=== PATIENT | female | born 1975 | race Caucasian/White ===

== ENCOUNTER 2017-01-02 01:32 | Emergency (ER) | payer OTHER ==
--- NOTE | 2017-01-02 01:46 | PDOC ---
History of Present Illness - General Chief Complaint: Pain, Acute Stated Complaint: FELL HITTING NECK ON FIRE PLACE Time Seen by Provider: 01/02/17 01:39 - History of Present Illness Initial Comments: This otherwise healthy 41-year-old woman presents with a history of trauma to the right side of her neck. Yesterday afternoon, as she was cleaning her house , the patient slipped and fell forward, striking the right anterior portion of her neck against the corner of the fireplace. She had no other impact and denies loss of consciousness. Since then, she has had pain and bruising in the area of impact. Also, she notes pain with swallowing on the side of the trauma but has not had any difficulty with breathing or sensation of foreign body in her throat. She denies lightheadedness/visual changes/extremity or facial weakness/difficulty with speaking. Past History - Past Medical History Allergies/Adverse Reactions: Allergies Allergy/AdvReac Type Severity Reaction Status Date / Time No Known Allergies Allergy Verified 01/02/17 01:40 Home Medications: Ambulatory Orders NK [No Known Home Medication] 01/02/17 Anemia: No Asthma: No Cancer: No Cardiac Disorders: No CVA: No COPD: No CHF: No Dementia: No Diabetes: No GI Disorders: Yes (gerd) Disorders: No HTN: No Hypercholesterolemia: No Liver Disease: No Seizures: No Thyroid Disease: No - Surgical History Abdominal Surgery: No Appendectomy: No Cardiac Surgery: No Cholecystectomy: No Lung Surgery: No Neurologic Surgery: No Orthopedic Surgery: No - Psycho/Social/Smoking Cessation Hx Anxiety: No Suicidal Ideation: No Smoking History: Never smoked Have you smoked in the past 12 months: No Hx Alcohol Use: No Drug/Substance Use Hx: No Substance Use Type: None Hx Substance Use Treatment: No Review of Systems - Review of Systems Able to Perform ROS?: Yes Comments:: 12 point review of systems is negative except for what is noted in the history of present illness *Physical Exam - Physical Exam Comments: GENERAL: Adult female, alert and oriented 3, in no acute distress HEAD: Normal with no signs of trauma. EYES: PERRLA, EOMI, sclera anicteric, conjunctiva clear. ENT: Ears normal, nares patent, oropharynx clear without exudates. Dry mucous membranes. NECK: 3 cm by 3 cm ecchymotic, mildly edematous, mildly tender area just proximal to the sternal insertion of the R sternocleidomastoid muscle No bruits; mass non-pulsatile Neck otherwise nontender and supple LUNGS: Breath sounds equal, clear to auscultation bilaterally. No wheezes, and no crackles. HEART:Regular rate and rhythm, normal S1 and S2 without murmur, rub or gallop. ABDOMEN:.normal bowel sounds No guarding,tenderness or rebound.No masses No distention. EXTREMITIES: Normal range of motion, no edema. No clubbing or cyanosis. No erythema, or tenderness. NEUROLOGICAL: Cranial nerves II through XII grossly intact. Normal speech. Motor 5/5 . No pronator drift . Normal gait MUSCULOSKELETAL: Back non-tender to palpation, no CVA tenderness SKIN: Warm, Dry, normal turgor, no rashes or lesions noted. Medical Decision Making - Medical Decision Making Soft tissue noncontrast CT of the soft tissue of the neck performed to evaluate for injury to carotid artery/jugular vein/thyroid gland/airway. No evidence of significant injury to the deep tissues of the neck. There is no cervical hematoma. Results discussed with the patient and her daughter. She will be discharged with instructions to keep her head elevated and to avoid strenuous upper body activity. The patient prefers not to use analgesics; she has been advised to use acetaminophen instead of nonsteroidal anti-inflammatories for the next few days. She should follow-up with her general medical doctor within the next 5 days. *DC/Admit/Observation/Transfer Diagnosis at time of Disposition: NECK CONTUSION Neck contusion Qualifiers: Encounter type: initial encounter Qualified Code(s): S10.93XA - Contusion of unspecified part of neck, initial encounter - Discharge Dispostion Disposition: HOME Condition at time of disposition: Stable - Patient Instructions Printed Discharge Instructions: DI for Contusion Additional Instructions: Keep head elevated on extra pillow at night Tylenol as needed for pain Return to ER if you have difficulty breathing or difficulty swallowing Follow-up with your general doctor within 5 days
[2017-01-02 01:49] VITALS: BP 129/93; PULSE 78; TEMP 97.8; BMI 31.1
== END 2017-01-02 03:18 | disposition home or self-care (01) ==
LOC: FER 01:32
DX: S10.93XA Contusion of unspecified part of neck, initial encounter (principal); W19.XXXA Unspecified fall, initial encounter; Y93.89 Activity, other specified; Y92.008 Other place in unspecified non-institutional (private) residence as the place of occurrence of the external cause; K21.9 Gastro-esophageal reflux disease without esophagitis
CPT/HCPCS: 70490-TC; 99281-25

== ENCOUNTER 2017-03-07 21:24 | Emergency (ER) | payer OTHER ==
[2017-03-07 21:32] VITALS: BP 115/74; PULSE 76; TEMP 98.1; BMI 31.1
[2017-03-07] MEDS ORDERED: KETOROLAC TROMETHAMINE 60 MG/2 ML VIAL ONE (21:53)
--- NOTE | 2017-03-07 21:55 | PDOC ---
History of Present Illness - History of Present Illness Initial Comments: 03/07/17 21:55 41 y/o F with no significant PMH presents to the ED with right ankle pain today. She slipped and rolled her ankle. She did not hear any cracks or pops. She is ambulating but with difficulty secondary to the pain. She denies numbness or tingling. Denies any other complaints. PAST MEDICAL HISTORY: no significant history PAST SURGICAL HISTORY: no significant history FAMILY HISTORY: no pertinent history SOCIAL HISTORY: Pt lives with family and is employed. MEDICATIONS: reviewed ALLERGIES: As per nursing notes Review of Systems: General: No fevers or chills, no weakness, no weight loss HEENT: No change in vision. No sore throat,. No ear pain CardioVascular: No chest pain or shortness of breath Respiratory: No cough, or wheezing. Gastrointestinal: no nausea, vomiting, diarrhea or constipation, No rectal bleeding Genitourinary: No dysuria, hematuria, or frequency Musculoskeletal: (+) right ankle pain. Neurologic: No headache, vertigo, dizziness or loss of consciousness Psychiatric: No depression Skin: No rashes or easy bruising Endocrine: No increased thirst or abnormal weight change Allergic: No skin or latex allergy All other systems reviewed and normal Physical Exam: GENERAL: The patient is awake, alert, and fully oriented, in no acute distress. HEAD: Normal with no signs of trauma. EYES: Pupils equal, round and reactive to light, extraocular movements intact, sclera anicteric, conjunctiva clear. EXTREMITIES: Tenderness and swelling over the right lateral malleolus. No tenderness at the base of the 5th metatarsal. Neurovascularly intact. NEUROLOGICAL: Normal speech, normal gait. PSYCH: Normal mood, normal affect. SKIN: Warm, Dry, normal turgor, no rashes or lesions noted. <Lovely Perez - Last Filed: 03/07/17 21:55> - General History Source: Patient Exam Limitations: No Limitations - History of Present Illness Initial Comments: 03/07/17 23:40 A portion of this note was documented by scribe services under my direction. I have reviewed the details of the note, within reason, and agree with the documentation. The case summary and management plan written by me. X-ray reviewed by me no acute fracture dislocation Assessment and plan: This is a 41-year-old female who twisted her right ankle. X-ray was negative for any acute pathology Patient was given a Claude wrap and crutches and she was unable to bear weight. Patient has a primary care doctor to follow-up with. <Himanshu Hernandez I - Last Filed: 03/07/17 23:41> - General Chief Complaint: Injury Stated Complaint: RT LEG PAIN Time Seen by Provider: 03/07/17 21:31 Past History <Lovely Perez - Last Filed: 03/07/17 21:55> - Past Medical History Anemia: No Asthma: No Cancer: No Cardiac Disorders: No CVA: No COPD: No CHF: No Dementia: No Diabetes: No GI Disorders: Yes (gerd) Disorders: No HTN: No Hypercholesterolemia: No Liver Disease: No Seizures: No Thyroid Disease: No - Surgical History Abdominal Surgery: No Appendectomy: No Cardiac Surgery: No Cholecystectomy: No Lung Surgery: No Neurologic Surgery: No Orthopedic Surgery: No - Suicide/Smoking/Psychosocial Hx Smoking History: Never smoked Have you smoked in the past 12 months: No Hx Alcohol Use: No Drug/Substance Use Hx: No Substance Use Type: None Hx Substance Use Treatment: No <Himanshu Hernandez I - Last Filed: 03/07/17 23:41> - Past Medical History Allergies/Adverse Reactions: Allergies Allergy/AdvReac Type Severity Reaction Status Date / Time No Known Allergies Allergy Verified 01/02/17 01:40 Home Medications: Ambulatory Orders NK [No Known Home Medication] 01/02/17 *Physical Exam - Vital Signs Last Vital Signs Temp Pulse Resp BP Pulse Ox 98.1 F 76 16 115/74 99 03/07/17 21:29 03/07/17 21:29 03/07/17 21:29 03/07/17 21:29 03/07/17 21:29 <Lovely Perez - Last Filed: 03/07/17 21:55> - Vital Signs Last Vital Signs Temp Pulse Resp BP Pulse Ox 98.1 F 76 16 115/74 99 03/07/17 21:29 03/07/17 21:29 03/07/17 21:29 03/07/17 21:29 03/07/17 21:29 <Himanshu Hernandez I - Last Filed: 03/07/17 23:41> ED Treatment Course - RADIOLOGY Radiology Studies Ordered: Category Date Time Status ANKLE-RIGHT [RAD] Stat Radiology 03/07/17 21:38 Ordered <Himanshu Hernandez I - Last Filed: 03/07/17 23:41> *DC/Admit/Observation/Transfer - Attestations Scribe Attestion: 03/07/17 21:55 Documentation prepared by Lovely Perez, acting as medical examiner for Himanshu Hernandez MD. <Lovely Perez - Last Filed: 03/07/17 21:55> <Himanshu Hernandez I - Last Filed: 03/07/17 23:41> Diagnosis at time of Disposition: Right ankle sprain Qualifiers: Encounter type: initial encounter Involved ligament of ankle: unspecified ligament Qualified Code(s): S93.401A - Sprain of unspecified ligament of right ankle, initial encounter - Discharge Dispostion Disposition: HOME Condition at time of disposition: Stable - Referrals Referrals: Anant Taveras MD [Primary Care Provider] - - Patient Instructions Printed Discharge Instructions: DI for Ankle Sprain Additional Instructions: Wear the ankle support and use your crutches as needed for walking. Tylenol or Motrin as needed for pain. Return to the emergency department immediately with ANY new, persistent or worsening symptoms. Continue any medications as previously prescribed by your physician. You should follow up with your primary doctor as soon as possible regarding today's emergency department visit. . Please make sure your doctor reviews the results of your emergency evaluation. Thank you for coming to the Emergency Department today for your care. It was a pleasure to see you today. Please note that your evaluation is INCOMPLETE until you follow-up with your doctor.
[2017-03-07] MEDS ORDERED: KETOROLAC TROMETHAMINE 60 MG/2 ML VIAL IM ONE (21:59)
== END 2017-03-07 22:20 | disposition home or self-care (01) ==
LOC: FER 21:24
PROC: 3E0233Z Introduction of Anti-inflammatory into Muscle, Percutaneous Approach (ICD-10-PCS; principal; 2017-03-07)
DX: S93.401A Sprain of unspecified ligament of right ankle, initial encounter (principal); X58.XXXA Exposure to other specified factors, initial encounter; Y93.89 Activity, other specified; Y92.9 Unspecified place or not applicable; K21.9 Gastro-esophageal reflux disease without esophagitis
CPT/HCPCS: 73610-TC-RT; 99282-25

== ENCOUNTER 2017-06-03 08:45 | Day surgery (SDC) | payer OTHER ==
[2017-05-30 16:48] VITALS: BMI 30.1
--- NOTE | 2017-06-03 09:59 | HP ---
History & Physical Update - History History: No Change - Physical Physical: No Change - Assessment Assessment: No Change - Plan Plan: No Change
[2017-06-03] MEDS ORDERED: ceFAZolin SODIUM 1 GM VIAL IVPB ONE (10:48)
--- NOTE | 2017-06-03 11:26 | OP ---
Operative Note - Note: Operative Date: 06/03/17 Pre-Operative Diagnosis: voluntary sterilization Operation: laparoscopic bilateral salpingectomy Surgeon: Gisell Rajan Pointer Helper: Gina Julio Anesthesiologist/ENT SURGEON: Sy Pickett Anesthesia: General Specimens Removed: bilateral salpingx Estimated Blood Loss (mls): 3 Fluid Volume Replaced (mls): 700 Operative Report Dictated: Yes
--- NOTE | 2017-06-03 11:31 | SURG ---
Surgery Machine Applicator Cementer Note Machine Applicator Cementer: Gina Julio PA-C Date of Service: 06/03/17 Diagnosis: voluntary sterilization Procedure: laparoscopic bilateral salpingectomy I was present for the entirety of the operative procedure. For further detail, please refer to operative report. Visit type - Case Type Case Type: Scheduled Admission - Emergency Emergency Visit: No - New patient This patient is new to me today: Yes Date on this admission: 06/03/17
[2017-06-03] MEDS ORDERED: ONDANSETRON 4 MG/2 ML VIAL IVPUSH PRN (11:39)
[2017-06-03] MEDS ORDERED: oxyCODONE HCL 5 MG TABLET PO PRN ×2 (11:39)
[2017-06-03] MEDS ORDERED: LACTATED RINGERS SOLUTION 1,000 ML IV SCH (11:45)
[2017-06-03 12:53] VITALS: TEMP 97.9
[2017-06-03 15:39] VITALS: BP 110/56; PULSE 88
--- NOTE | 2017-06-03 20:14 | OP ---
DATE OF OPERATION: 06/03/2017 PREOPERATIVE DIAGNOSIS: Voluntary sterilization. OPERATION: Laparoscopic bilateral salpingectomy. POSTOPERATIVE DIAGNOSIS: Voluntary sterilization. SURGEON: Yoav Calero MD ORACLE DATABASE CONSULTANT: COREEN Pelayo ANESTHESIA: General. ANESTHESIOLOGIST: Sahil Taylor MD PROCEDURE: Patient was taken to the operating room, placed in dorsal lithotomy position, prepped and draped in the usual sterile fashion. A timeout was performed in accordance to hospital regulation. Day catheter was inserted into the bladder. Attention was then drawn to the umbilicus where a 5-mm umbilical incision was then made. The Veress needle was inserted into the cavity. Approximately 3-4 L of CO2 was insufflated in the cavity. The Veress needle was then removed, and a 5-mm trocar was then inserted. Laparoscope and camera were attached. Visualization revealed normal anatomy, normal tubes, normal ovaries. Two lower trocars were then inserted after scalpel had made incisions under direct visualization. Grasper and LigaSure were then attached. Tubes were bilaterally grasped, and LigaSure was then used to coagulate and cut the tubes bilaterally away from the uterus and attachments. Tubes were then bilaterally submitted to Pathology. Hemostasis was achieved. Estimated blood loss: 3 mL. Patient tolerated the procedure well, was taken to recovery room in stable condition. All instruments and count was noted to be normal. YOAV CALERO M.D. [id number]
--- NOTE | 2017-06-04 14:13 | PATH ---
Surgical Pathology Report Patient Name: TONEY MORGAN [facility]. Rec. #: [id number] /Age/Gender: 1975 (Age: 41) / F Account: [id number] Location: [facility] SURGICAL Taken: 06/03/2017 Received: 06/03/2017 Reported: 06/04/2017 Physicians: Gisell Rajan M.D. Specimen(s) Received A: RIGHT FALLOPIAN TUBE B: LEFT FALLOPIAN TUBE Clinical History Voluntary sterilization Final Diagnosis A. RIGHT FALLOPIAN TUBE, SALPINGECTOMY: FULL LUMINAL PORTION OF UNREMARKABLE FALLOPIAN TUBE, INCLUDING FIMBRIATED END. B. LEFT FALLOPIAN TUBE, SALPINGECTOMY: FULL LUMINAL PORTION OF UNREMARKABLE FALLOPIAN TUBE, INCLUDING FIMBRIATED END. Electronically Signed Juan Bay M.D. Gross Description A. Received in formalin labeled "right fallopian tube," are 3 portions of fallopian tube measuring 1.5, 2.0 and 6.0 cm in length. The 2.0 cm in length portion displays attached fimbria. The outer surfaces are christianson-pink and smooth. Sectioning reveals unremarkable lumen. Accelerator Technician sections are submitted in 2 cassettes as follows: 1-fimbria; 2-[id number]-[id number] of fallopian tube. B. Received in formalin labeled "left fallopian tube," is a 5.5 cm in length portion of fallopian tube. The fimbriae are separately received within the same container. The outer surface is christianson-pink with focal attached fat. Sectioning reveals an unremarkable lumen. Accelerator Technician sections are submitted in 2 cassettes as follows: 1-fimbria; 8-tptfq-hzaqlpxh of fallopian tube. /06/03/2017 saudi/06/03/2017
== END 2017-06-03 14:30 | disposition home or self-care (01) ==
LOC: JASU-SURG 08:45
PROVIDERS: ATTEND Obstetrics & Gynecology
PROC: 0UT74ZZ Resection of Bilateral Fallopian Tubes, Percutaneous Endoscopic Approach (ICD-10-PCS; principal; 2017-06-03 10:00)
DX: Z30.2 Encounter for sterilization (principal)
CPT/HCPCS: 88302-TC; 94760

== ENCOUNTER 2017-09-26 19:57 | Inpatient (IN) | payer OTHER ==
--- NOTE | 2017-09-26 20:06 | PDOC ---
Rapid Medical Evaluation Chief Complaint: Pain Time Seen by Provider: 09/26/17 20:03 Medical Evaluation: Allergies Allergy/AdvReac Type Severity Reaction Status Date / Time No Known Allergies Allergy Verified 09/21/17 12:11 09/26/17 20:04 sent by Dfr. padilla for evaluation of biliary colic. patient report right upper quadrant pain. denies fever/ chills RUQ pain x 1 month. O: patient alert ox3. A: abdominal pain P: cbc, cmp, ua, ucx, abdominal u/s patient to the ED for further management of care/
[2017-09-26 20:07] VITALS: BMI 30.1
[2017-09-26 20:26] LABS: BASO % 0.6 % (0-2.0); EOS % 0.6 % (0-4.5); HEMATOCRIT 39.4 % (32.4-45.2); HEMOGLOBIN 13.3 GM/dL (10.7-15.3); LYMPH % 36.8 % (8-40); MCH 28.3 pg (25.7-33.7); MCHC 33.7 g/dl (32.0-36.0); MEAN CELL VOLUME 83.9 fl (80-96); MEAN PLT VOLUME 9.7 fl (7.5-11.1); MONO % 7.2 % (3.8-10.2); NEUT % 54.8 % (42.8-82.8); PLATELET COUNT 233 K/MM3 (134-434); RDW 14.7 % (11.6-15.6); WHITE BLOOD COUNT 7.7 K/mm3 (4.0-10.0)
[2017-09-26 20:40] LABS: URINE APPEARANCE SLCLOUDY; URINE BILIRUBIN NEGATIVE (<2.0 mg/dL); URINE COLOR YELLOW; URINE GLUCOSE (UA) NEGATIVE (NEGATIVE); URINE KETONE NEGATIVE (NEGATIVE); URINE LEUK ESTERASE TRACE (NEGATIVE); URINE NITRITE NEGATIVE (NEGATIVE); URINE PROTEIN NEGATIVE (NEGATIVE); URINE UROBILINOGEN NEGATIVE mg/dL (0.2-1.0)
[2017-09-26 20:58] LABS: EPI CELLS FEW /HPF (FEW); URINE MUCUS MODERATE
--- NOTE | 2017-09-26 21:01 | PDOC ---
History of Present Illness - General Chief Complaint: Pain Stated Complaint: PCP SENT/PAIN Time Seen by Provider: 09/26/17 20:03 History Source: Patient Exam Limitations: No Limitations - History of Present Illness Initial Comments: This is a 42 YOF with h/o constipation, GERD (takes omeprazole daily), and BTL who p/w intermittent RUQ abdominal pain radiating to her right shoulder for the past two weeks, as well as mild abdominal swelling/distention worse in the RUQ. She was sent by Dr. Mcwilliams for evaluation of possible biliary colic. She was seen here in the ED on 09/21/[address] abdomen/pelvis showing mild GB wall thickening of 4mm without any detectable stones or sludge at the time. She denies any fever, chills, nausea, vomiting, diarrhea, burning or frequency of urination, vaginal bleeding or discharge, or other symptoms. Past History - Past Medical History Allergies/Adverse Reactions: Allergies Allergy/AdvReac Type Severity Reaction Status Date / Time No Known Allergies Allergy Verified 09/26/17 20:07 Home Medications: Ambulatory Orders Acetaminophen [Tylenol] 650 mg PO Q4H PRN #20 tablet 09/21/17 Famotidine [Pepcid] 40 mg PO DAILY 09/21/17 Oxycodone HCl 5 mg PO Q6H PRN #12 tablet MDD 4 09/21/17 Pantoprazole Sodium 40 mg PO DAILY 09/21/17 Anemia: No Asthma: No Cancer: No Cardiac Disorders: No CVA: No COPD: No CHF: No Dementia: No Diabetes: No GI Disorders: Yes (gerd, gallstones) Disorders: No HTN: No Hypercholesterolemia: Yes Liver Disease: No Seizures: No Thyroid Disease: No - Surgical History Abdominal Surgery: No Appendectomy: No Cardiac Surgery: No Cholecystectomy: No Lung Surgery: No Neurologic Surgery: No Orthopedic Surgery: No - Suicide/Smoking/Psychosocial Hx Smoking History: Never smoked Have you smoked in the past 12 months: No Information on smoking cessation initiated: No Hx Alcohol Use: No Drug/Substance Use Hx: No Substance Use Type: None, Cocaine Hx Substance Use Treatment: No *Physical Exam - Vital Signs Last Vital Signs Temp Pulse Resp BP Pulse Ox 98.1 F 80 18 121/73 100 09/26/17 20:05 09/26/17 20:05 09/26/17 20:05 09/26/17 20:05 09/26/17 20:05 - Physical Exam General Appearance: Yes: Nourished, Appropriately Dressed, Other (Well- appearing and nontoxic adult female in no distress who is answering questions appropriately and accompanied at bedside by her daughter). No: Apparent Distress HEENT: positive: EOMI, RODRÍGUEZ, Normal Voice, Hearing Grossly Normal. negative: Scleral Icterus (R), Scleral Icterus (L), Nasal Congestion Neck: positive: Trachea midline, Supple. negative: Tender, Rigid Respiratory/Chest: positive: Lungs Clear, Normal Breath Sounds. negative: Respiratory Distress, Crackles, Rhonchi, Stridor, Wheezing Cardiovascular: positive: Regular Rhythm, Regular Rate, S1, S2. negative: Edema , JVD, Murmur Gastrointestinal/Abdominal: positive: Normal Bowel Sounds, Tender (minimal RUQ tenderness to palpation), Soft, Distended (minimally). negative: Organomegaly, Pulsatile Mass, Guarding Musculoskeletal: positive: Normal Inspection. negative: CVA Tenderness, Decreased Range of Motion, Vertebral Tenderness Extremity: positive: Normal Capillary Refill, Normal Inspection, Normal Range of Motion. negative: Tender, Cyanosis Integumentary: positive: Normal Color, Dry, Warm. 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 negative: EOM Palsy, Facial Droop, Numbness, Sensory Deficit, Confused, Disoriented Heart Score/ECG Review #1 NSR, rate of 72, T-wave flattening in aVL, normal axis and intervals. ED Treatment Course - LABORATORY CBC & Chemistry Diagram: 09/26/17 20:19 09/26/17 20:19 - ADDITIONAL ORDERS Additional order review: Laboratory Results 09/26/17 20:25 Urine Color Yellow Urine Appearance Slcloudy Urine pH 5.0 Ur Specific [place] 1.025 Urine Protein Negative Urine Glucose (UA) Negative Urine Ketones Negative Urine Blood Negative Urine Nitrite Negative Urine Bilirubin Negative Urine Urobilinogen Negative Ur Leukocyte Esterase Trace 09/26/17 20:19 RBC 4.70 MCV 83.9 MCHC 33.7 RDW 14.7 MPV 9.7 Neutrophils % 54.8 Lymphocytes % 36.8 Monocytes % 7.2 Eosinophils % 0.6 D Basophils % 0.6 Medical Decision Making - Medical Decision Making Adult female patient p/w RUQ abdominal pain. Initial Vital Signs Temp Pulse Resp BP Pulse Ox 98.1 F 80 18 121/73 100 09/26/17 20:05 09/26/17 20:05 09/26/17 20:05 09/26/17 20:05 09/26/17 20:05 Exam: NAD, nontoxic and well appearing, abdominal exam with normoactive bowel sounds, minimal RUQ ttp, mild abdominal distention. DDX IBNLT: biliary colic, cholecystitis (calculous vs. acalculous), choledocholithiasis, cholangitis, pancreatitis, appendicitis, gastritis, PUD, colitis, diverticulitis wwo abscess or perforation, AAA/AD, ACS, renal colic, obstructive uropathy, UTI/pyelonephritis, hernia, SBO, mesenteric/bowel ischemia , bowel perforation, malignancy, ovarian torsion, ovarian cyst, ectopic , PID/TOA, cervicitis, endometritis, dysmenorrhea, endometriosis, fibroids, constipation, gas, musculoskeletal, etc. W/U ordered: CBCD CMP Mg Phos Lipase Amylase Lactate Troponin CK CKMB Coags T&S UA UCx EKG CXR RUQ US TX ordered: IVF Possible cholecystitis as patient's alkaline phosphatase has been rising. Possible gastritis as patient has h/o GERD and got some relief with home Pepcid. Unlikely cholangitis as pt has no fever, clinical jaundice, RUQ pain; also no hypotension or AMS. Unlikely pancreatitis as pt denies EtOH use or h/o gallstones, trauma, steroids , thiazides, recent ERCP, lipase is negative. Unlikely appendicitis as pt has no fever, RLQ or umbilical abdominal pain, or anorexia. Unlikely PUD as pt does not report relief of pain ~2 hours postprandially or with antacids. Unlikely colitis as clinically pts abdomen is not distended/no ascites, no fever, other VS wnl. Unlikely diverticulitis as patient has no known h/o diverticulosis/ diverticulitis. Unlikely renal stone as patient notes no clinical hematuria, has no CVA ttp. Unlikely UTI/pyelonephritis as patient has no dysuria, strange colors/smells, no h/o recurrent UTI. Unlikely external hernia as there is no outwardly palpable lump. Unlikely internal hernia as patient has no h/o bariatric surgery. Unlikely SBO as patient has been passing stool and gas normally per their baseline. Unlikely mesenteric ischemia as patient has no known A-fib or coagulopathy, no pain out of proportion. Unlikely malignancy as patient has no palpable mass, no reported recent B symptoms. EKG: NSR, rate of 72, T-wave flattening in aVL, normal axis and intervals. US: Negative for GB pathology. Repeat Vital Signs Temperature 98.1 F 09/26/17 20:05 Pulse Rate 80 09/26/17 20:05 Respiratory Rate 18 09/26/17 20:05 Blood Pressure 121/73 09/26/17 20:05 O2 Sat by Pulse Oximetry (%) 100 09/26/17 20:05 Reassessment: Patient with unchanged examination, abdominal exam benign. Laboratory Tests 09/26/17 09/26/17 09/26/17 20:19 20:19 20:19 WBC 7.7 RBC 4.70 Hgb 13.3 Hct 39.4 MCV 83.9 MCH 28.3 MCHC 33.7 RDW 14.7 Plt Count 233 MPV 9.7 Neutrophils % 54.8 Lymphocytes % 36.8 Monocytes % 7.2 Eosinophils % 0.6 D Basophils % 0.6 Sodium 140 Potassium 4.1 Chloride 107 Carbon Dioxide 26 Anion Gap 7 L BUN 11 Creatinine 0.6 Creat Clearance w eGFR > 60 Random Glucose 101 Calcium 9.3 Total Bilirubin 0.3 AST 21 ALT 26 Alkaline Phosphatase 131 H Total Protein 7.7 Albumin 4.0 Lipase 123 Serum , Qual Negative Urine Color Urine Appearance Urine pH Ur Specific [place] Urine Protein Urine Glucose (UA) Urine Ketones Urine Blood Urine Nitrite Urine Bilirubin Urine Urobilinogen Ur Leukocyte Esterase Urine WBC (Auto) Urine RBC (Auto) Ur Epithelial Cells Urine Mucus 09/26/17 20:25 WBC RBC Hgb Hct MCV MCH MCHC RDW Plt Count MPV Neutrophils % Lymphocytes % Monocytes % Eosinophils % Basophils % Sodium Potassium Chloride Carbon Dioxide Anion Gap BUN Creatinine Creat Clearance w eGFR Random Glucose Calcium Total Bilirubin AST ALT Alkaline Phosphatase Total Protein Albumin Lipase Serum , Qual Urine Color Yellow Urine Appearance Slcloudy Urine pH 5.0 Ur Specific [place] 1.025 Urine Protein Negative Urine Glucose (UA) Negative Urine Ketones Negative Urine Blood Negative Urine Nitrite Negative Urine Bilirubin Negative Urine Urobilinogen Negative Ur Leukocyte Esterase Trace Urine WBC (Auto) 6 Urine RBC (Auto) 2 Ur Epithelial Cells Few Urine Mucus Moderate The patient is unsafe for discharge at this time given persistent RUQ pain. Spoke with Dr. Mcwilliams who admits the patient to herself. Consult order placed to Dr. Bueno. Decision to Admit order placed, Med/Surg Obs. Additionally placed orders for amylase, T&S, Coags, NS bolus, NPO after midnight. *DC/Admit/Observation/Transfer Diagnosis at time of Disposition: Abdominal pain Qualifiers: Abdominal location: right upper quadrant Qualified Code(s): R10.11 - Right upper quadrant pain Constipation Qualifiers: Constipation type: unspecified constipation type Qualified Code(s): K59.00 - Constipation, unspecified GERD (gastroesophageal reflux disease) Qualifiers: Esophagitis presence: esophagitis presence not specified Qualified Code(s): K21.9 - Gastro-esophageal reflux disease without esophagitis - Discharge Dispostion Condition at time of disposition: Guarded Admit: Yes - Referrals - Patient Instructions - Post Discharge Activity
[2017-09-26 21:21] LABS: ALK PHOS 131 U/L (45-117); ANION GAP 7 (8-16); BILIRUBIN,TOTAL 0.3 mg/dL (0.2-1.0); BLOOD UREA NITROGEN 11 mg/dL (7-18); CALCIUM 9.3 mg/dL (8.5-10.1); CHLORIDE 107 mmol/L (98-107); CO2 26 mmol/L (21-32); CREATININE 0.6 mg/dL (0.55-1.02); GLUCOSE,RANDOM 101 mg/dL (74-106); LIPASE 123 U/L (73-393); POTASSIUM 4.1 mmol/L (3.5-5.1); SGOT/AST 21 U/L (15-37); SGPT/ALT 26 U/L (12-78); SODIUM 140 mmol/L (136-145); TOT PROT 7.7 g/dl (6.4-8.2)
--- NOTE | 2017-09-26 21:54 | PDOC ---
Attending Attestation - HPI HPI: 09/26/17 22:24 The patient is a 42 year old female, with a significant past medical history of constipation, GERD, BTL, who presents to the emergency department with, two weeks of intermittent right upper quadrant abdominal pain radiating to the right shoulder. The patient reports abdominal swelling and distension. The patient is sent over by her PCP Dr. Ramirez for further evaluation. The patient came to [facility] ED 09/21/[address] she had a CT of the abdomen and pelvis. She denies recent fevers, chills, headache or dizziness. She denies recent nausea, vomit, diarrhea or constipation. She denies recent dysuria, frequency, urgency or hematuria. She denies recent chest pain or shortness of breath. Allergies: NKA Social history: Nonsmoker. Denies EtOH use and recreational drug use. Primary Care Physician: Dr. Ramirez <Mendez Sullivan - Last Filed: 09/26/17 22:24> - Resident Resident Name: Symone Mcnally - ED Attending Attestation I have performed the following: I have examined & evaluated the patient, The case was reviewed & discussed with the resident, I agree w/resident's findings & plan, Exceptions are as noted - Physicial Exam PE: 09/26/17 21:58 *Physical Exam General Appearance: Yes: Appropriately Dressed. No: Apparent Distress, Intoxicated HEENT: positive: EOMI, RODRÍGUEZ, Normal ENT Inspection, Normal Voice, TMs Normal, Pharynx Normal. negative: Pale Conjunctivae, Photophobia, Scleral Icterus (R), Scleral Icterus (L) Neck: positive: Trachea midline, Normal Thyroid, Supple. negative: Tender, Rigid, Carotid bruit, Stridor, Lymphadenopathy (R), Lymphadenopathy (L), Thyromegaly Respiratory/Chest: positive: Lungs Clear, Normal Breath Sounds. negative: Chest Tender, Respiratory Distress, Accessory Muscle Use, Labored Respiration, RES, Crackles, Rales, Rhonchi, Stridor, Wheezing, Dullness Cardiovascular: positive: Regular Rhythm, Regular Rate, S1, S2. negative: Edema , JVD, Murmur, Bradycardia, Tachycardia Vascular Pulses: Dorsalis-Pedis (R): 2+, Doralis-Pedis (L): 2+ Gastrointestinal/Abdominal: positive: Normal Bowel Sounds, Flat, Soft. mild RUQ tenderness negative: Organomegaly, Pulsatile Mass, Increased Bowel Sounds, Decreased BS, Distended, Guarding, Rebound, Hernia, Hepatomegaly, Spleenomegaly Lymphatic: negative: Adenopathy, Tenderness Musculoskeletal: positive: Normal Inspection. negative: CVA Tenderness, Decreased Range of Motion Extremity: positive: Normal Capillary Refill, Normal Inspection, Normal Range of Motion, Pelvis Stable. negative: Tender, Pedal Edema, Swelling, Erythema Integumentary: positive: Normal Color, Dry, Warm. 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 negative: EOM Palsy, Facial Droop, Sensory Deficit - Medical Decision Making 10/01/17 19:36 Pt admitted to Med Surg <Killian Durbin - Last Filed: 10/01/17 19:36> Attestations - Attestations 09/26/17 22:24 Documentation prepared by Mendez Sullivan, acting as director medical safety for Killian Durbin DO. <Mendez Sullivan - Last Filed: 09/26/17 22:24>
[2017-09-26] MEDS ORDERED: SODIUM CHLORIDE 0.9% 500 ML INFUS.BAG IV ONE (22:07)
[2017-09-26 23:40] LABS: PROTHROMBIN TIME (PATIENT) 11.3 SEC (9.7-13.0)
[2017-09-27] MEDS ORDERED: SODIUM CHLORIDE 1,000 ML IV ONE (09:29)
--- NOTE | 2017-09-27 09:33 | EKG ---
Test Reason : Blood Pressure : / mmHG Vent. Rate : 072 BPM Atrial Rate : 072 BPM P-R Int : 144 ms QRS Dur : 088 ms QT Int : 416 ms P-R-T Axes : 040 014 050 degrees QTc Int : 455 ms NORMAL SINUS RHYTHM NONSPECIFIC T WAVE ABNORMALITY ABNORMAL ECG WHEN COMPARED WITH ECG OF 12-NOV-2011 18:03, NONSPECIFIC T WAVE ABNORMALITY NOW EVIDENT IN ANTERIOR LEADS Confirmed by PEGGY NAVARRETE MD ([id number]) on 09/27/2017 9:33:47 AM Referred By: Confirmed By:PEGGY NAVARRETE MD
--- NOTE | 2017-09-27 11:43 | HP ---
DATE OF ADMISSION: HISTORY: This is a 42-year-old female with a history of constipation, reflux disease, and bilateral tubal ligation who presented to the ER with intermittent right upper quadrant pain radiating to the right shoulder for the past 2 weeks and also complains of mild abdominal swelling and distention more in the right upper quadrant. The patient was seen in the emergency room at [facility] on September [address] abdomen and pelvis and ultrasound showing mild gallbladder wall thickening of 4 mm without any detectable stones or sludge at that time. The patient came to the office for further evaluation and sent to the emergency room for high-definition scan and surgery evaluation. The patient denies any fever, chills, nausea, vomiting, diarrhea, burning, or frequency of urination with any bleeding. PAST MEDICAL HISTORY: History of reflux disease and constipation. As mentioned before, hypercholesterolemia. ALLERGIES: No known drug allergies. MEDICATIONS: She is on Tylenol, Pepcid, oxycodone prescribed from [facility], and pantoprazole 40 mg p.o. daily. PAST SURGICAL HISTORY: Nothing significant. PERSONAL HISTORY: Nothing significant. REVIEW OF SYSTEMS: General: No fever, no nausea, no vomiting. Respiratory: Nothing significant. Cardiovascular: Nothing significant. Gastrointestinal: History of reflux disease and right upper quadrant pain and constipation. Central Nervous System: Nothing significant. Musculoskeletal: Nothing significant. PHYSICAL EXAMINATION: Vital Signs: In the emergency room, the temperature is 98.1, pulse 80 per minute, respirations 18, blood pressure 121/73, pulse oximetry 100. General: Patient well built in no apparent distress. Head: Pupils equally reactive to light and accommodation. No scleral icterus. Neck: Supple. No JVD. Respiratory: Bilateral clear breath sounds. No wheezing. Cardiovascular: First and 2nd sound normal. Gastrointestinal: Normal bowel sounds. Slight tenderness in the right upper quadrant. No mass appreciated. No organomegaly. Bowel sounds present. Musculoskeletal: Full range of movement. Extremities: No edema. Skin: Warm. No erythema, no rash. Neurologic: Alert and oriented x3. No apparent motor or sensory deficit. Cranial nerves 2-12 normal. EKG done shows normal sinus rhythm with a rate of 72 per minute. Mild T-wave flattening in ADL. Regarding labs, CBC WBC 7.7, hemoglobin 13.3, hematocrit 39.4, platelets 233. CMP normal. Urine negative. Ultrasound of the abdomen done. No sonographic evidence of cholelithiasis or acute cholecystitis. In comparison to the prior ultrasound study of September 21, no interval change noticed. mild wall bladder contraction, which presumably was physiologic in nature. No biliary dilatation. Pancreas could not be visualized because of the bowel gas. Amylase 45, lipase 123. test negative. PT and INR normal. The case was discussed with the surgeon who recommended HIDA scan. Patient kept for observation, and HIDA scan ordered. Patient kept n.p.o. Patient is stable in the emergency room. Shilpi [id number]
--- NOTE | 2017-09-27 15:02 | PN ---
Progress Note, Physician Chief Complaint: Pt was seen No complaints today getting HIDA scan Will f/u report - Current Medication List Current Medications: Active Medications Sodium Chloride (Normal Saline -) 1,000 mls @ 125 mls/hr IV ASDIR ONE Stop: 09/27/17 17:28 Last Admin: 09/27/17 10:29 Dose: 125 mls/hr - Objective Vital Signs: Vital Signs Temperature 98.1 F 09/26/17 20:05 Pulse Rate 62 09/27/17 11:34 Respiratory Rate 18 09/27/17 11:34 Blood Pressure 122/56 09/27/17 11:34 O2 Sat by Pulse Oximetry (%) 100 09/27/17 11:34 Constitutional: Yes: No Distress Eyes: Yes: Conjunctiva Clear HENT: Yes: Atraumatic Neck: Yes: Supple Cardiovascular: Yes: Regular Rate and Rhythm Respiratory: Yes: Regular, CTA Bilaterally Gastrointestinal: Yes: Normal Bowel Sounds, Soft, Other (No tenderness) Musculoskeletal: Yes: WNL Extremities: Yes: WNL Edema: No Peripheral Pulses WNL: Yes Neurological: Yes: WNL, Alert, Oriented ...Motor Strength: WNL Psychiatric: Yes: WNL Labs: CBC, BMP 09/26/17 20:19 09/26/17 20:19 INR, PTT INR 1.00 (0.82-1.09) 09/26/17 22:55 - ....Imaging Ultrasound: Report Reviewed EKG: Report Reviewed Assessment/Plan Rt upperqudrant pain ? biliary colic PLAN Will f/u Hida scan report Surgery f/u IF hida scan negative ,d/c planing
--- NOTE | 2017-09-27 15:04 | PN ---
Progress Note, Physician - Current Medication List Current Medications: Active Medications Sodium Chloride (Normal Saline -) 1,000 mls @ 125 mls/hr IV ASDIR ONE Stop: 09/27/17 17:28 Last Admin: 09/27/17 10:29 Dose: 125 mls/hr - Objective Vital Signs: Vital Signs Temperature 98.1 F 09/26/17 20:05 Pulse Rate 62 09/27/17 11:34 Respiratory Rate 18 09/27/17 11:34 Blood Pressure 122/56 09/27/17 11:34 O2 Sat by Pulse Oximetry (%) 100 09/27/17 11:34 Labs: CBC, BMP 09/26/17 20:19 09/26/17 20:19 INR, PTT INR 1.00 (0.82-1.09) 09/26/17 22:55
[2017-09-27] MEDS ORDERED: HYDROmorphone HCL CARPU-JECT 4 MG/1 ML DISP.SYRIN IVPB PRN (16:58)
[2017-09-27] MEDS ORDERED: oxyCODONE HCL 5 MG TABLET PO PRN (16:58)
[2017-09-27] MEDS ORDERED: morphine SULFATE 4 MG/ML VIAL IVPUSH PRN (17:16)
--- NOTE | 2017-09-27 20:22 | CONSULT ---
Consult Consult Specialty:: Surgery Referred by:: Reason for Consultation:: Right upper quadrant abdominal pain for 2 weeks. No nausea, and no vomiting. - History of Present Illness Chief Complaint: C/O right upper quadrant abdominal pain, radiating to the back for 2 weeks. no nausea, no vomiting. History of Present Illness: Right upper quadrant abdominal pain for 2 weeks, radiating to the flank. . denies any nausea , no vomiting.. - Past Medical History Cardio/Vascular: Yes: Hyperlipdemia. No: AFIB, Aneurysm, Aortic Stenosis, CAD, CHF, Deep Vein Thrombosis, HTN, CO, Mitral Insufficiency, Mitral Stenosis, Murmur, Pulmonary Hypertension, Other ...LMP: 05/25/17 - Alcohol/Substance Use Hx Alcohol Use: No - Smoking History Smoking history: Never smoked Have you smoked in the past 12 months: No Home Medications - Allergies Allergies/Adverse Reactions: Allergies Allergy/AdvReac Type Severity Reaction Status Date / Time No Known Allergies Allergy Verified 09/26/17 20:07 - Home Medications Home Medications: Ambulatory Orders Acetaminophen [Tylenol] 650 mg PO Q4H PRN #20 tablet 09/21/17 Famotidine [Pepcid] 40 mg PO DAILY 09/21/17 Oxycodone HCl 5 mg PO Q6H PRN #12 tablet MDD 4 09/21/17 Pantoprazole Sodium 40 mg PO DAILY 09/21/17 Physical Exam Vital Signs: Vital Signs Temperature 98.1 F 09/26/17 20:05 Pulse Rate 62 09/27/17 11:34 Respiratory Rate 18 09/27/17 11:34 Blood Pressure 122/56 09/27/17 11:34 O2 Sat by Pulse Oximetry (%) 100 09/27/17 11:34 Gastrointestinal: Yes: Soft Labs: CBC, BMP 09/26/17 20:19 09/26/17 20:19 Imaging - Results Ultrasound: Report Reviewed (No gallstones), Image Reviewed (No gallstones on ultrasound of the gallbladder. Hida scan shows delayed filling of the cystic duct and gallbladder, no cholcystitis.) Other: Report Reviewed, Image Reviewed Problem List - Problems (1) Right upper quadrant abdominal pain Code(s): R10.11 - RIGHT UPPER QUADRANT PAIN (2) GERD (gastroesophageal reflux disease) Code(s): K21.9 - GASTRO-ESOPHAGEAL REFLUX DISEASE WITHOUT ESOPHAGITIS Qualifiers: Esophagitis presence: without esophagitis Qualified Code(s): K21.9 - Gastro -esophageal reflux disease without esophagitis (3) Anxiety Code(s): F41.9 - ANXIETY DISORDER, UNSPECIFIED Assessment/Plan Right upper quadrant abdominal pain, typically suggestive of cholecystitis, howeer imaging studies, including ultrasound and HIDA scan does not corrborate. HIDA scan shows delayed filling of the gallbladder, ruling out gallstones with obstruction. Biliary dyskinesia could be a possibility. As patient has GERD and is on PPI, an upper endoscopy could be considered. This could be done as an outpatient.
--- NOTE | 2017-09-28 07:23 | PN ---
Progress Note, Physician Chief Complaint: Pt was seen surgery f/u appreciated HIDA scan negative - Current Medication List Current Medications: Active Medications Morphine Sulfate (Morphine Sulfate) 2 mg IVPUSH Q6H PRN PRN Reason: PAIN LEVEL 6-10 Last Admin: 09/27/17 17:30 Dose: 2 mg Oxycodone HCl (Roxicodone -) 5 mg PO Q4H PRN PRN Reason: PAIN LEVEL 1-5 - Objective Vital Signs: Vital Signs Temperature 97.7 F 09/28/17 05:00 Pulse Rate 64 09/28/17 05:00 Respiratory Rate 20 09/28/17 06:00 Blood Pressure 98/64 09/28/17 05:00 O2 Sat by Pulse Oximetry (%) 100 09/28/17 06:00 Constitutional: Yes: No Distress Eyes: Yes: Conjunctiva Clear HENT: Yes: Atraumatic, Normocephalic Neck: Yes: Supple Cardiovascular: Yes: Regular Rate and Rhythm Respiratory: Yes: Regular, CTA Bilaterally Gastrointestinal: Yes: Normal Bowel Sounds, Soft Musculoskeletal: Yes: WNL Extremities: Yes: WNL Edema: No Peripheral Pulses WNL: Yes Neurological: Yes: WNL, Alert ...Motor Strength: WNL Psychiatric: Yes: WNL Labs: CBC, BMP 09/26/17 20:19 09/26/17 20:19 INR, PTT INR 1.00 (0.82-1.09) 09/26/17 22:55 Assessment/Plan Rt upperqudrant pain HIDA scan negative GERD PLAN d/c planing f/u with GI and surgery continue omeprazole
[2017-09-28 08:20] LABS: HEMOGLOBIN 13.2 GM/dL (10.7-15.3); MCH 28.4 pg (25.7-33.7); MCHC 33.8 g/dl (32.0-36.0); MEAN CELL VOLUME 84.2 fl (80-96); MEAN PLT VOLUME 10.1 fl (7.5-11.1); PLATELET COUNT 209 K/MM3 (134-434); RBC 4.64 M/mm3 (3.60-5.2); RDW 14.4 % (11.6-15.6); WHITE BLOOD COUNT 5.6 K/mm3 (4.0-10.0)
--- NOTE | 2017-09-28 11:38 | PN ---
Progress Note, Physician History of Present Illness: Patient still c/o pain in right upper abdomen, particularly when she tries to have a bowel movement. This has been happening for 2 months. She has had a cT scan of abdomen at [facility] on 09/21/2017 , without contrast. In view of the g.i. symptoms for 2 months, will obtain CT scan with oral and IV contrast. I have discussed with Dr. Ramirez, who has suggested a g.i. consult with Dr. Andrade. Request mad. I have explained to the patient and her . Less likely is biliary dyskinesia. which is usually a diagnosis of exclusion, and may need a cholecystokinin injection . CT scan ordered. - Current Medication List Current Medications: Active Medications Morphine Sulfate (Morphine Sulfate) 2 mg IVPUSH Q6H PRN PRN Reason: PAIN LEVEL 6-10 Last Admin: 09/27/17 17:30 Dose: 2 mg Oxycodone HCl (Roxicodone -) 5 mg PO Q4H PRN PRN Reason: PAIN LEVEL 1-5 - Objective Vital Signs: Vital Signs Temperature 97.7 F 09/28/17 05:00 Pulse Rate 64 09/28/17 05:00 Respiratory Rate 20 09/28/17 06:00 Blood Pressure 98/64 09/28/17 05:00 O2 Sat by Pulse Oximetry (%) 100 09/28/17 06:00 Labs: CBC, BMP 09/28/17 07:00 09/26/17 20:19 INR, PTT INR 1.00 (0.82-1.09) 09/26/17 22:55 Problem List - Problems (1) Right upper quadrant abdominal pain Code(s): R10.11 - RIGHT UPPER QUADRANT PAIN (2) GERD (gastroesophageal reflux disease) Code(s): K21.9 - GASTRO-ESOPHAGEAL REFLUX DISEASE WITHOUT ESOPHAGITIS Qualifiers: Esophagitis presence: without esophagitis Qualified Code(s): K21.9 - Gastro -esophageal reflux disease without esophagitis (3) Anxiety Code(s): F41.9 - ANXIETY DISORDER, UNSPECIFIED
--- NOTE | 2017-09-28 13:45 | CON.GI ---
Consult Consult Specialty:: Dr. Stoddard covering for Dr. Braga who resumes coverage Referred by:: Dr. Bueno Reason for Consultation:: Abdominal pain - History of Present Illness Chief Complaint: Abdominal pain History of Present Illness: 42F admitted through [facility] ER for evaluation of 2-3 weeks worth of abdominal pain. She describes the pain as follows: Sharp, non-radiating, occurring throughout the day for 5 minutes at a time, located in the RUQ and RLQ at times not occurring any more or less frequent with or without meals. She has chronic constipation predating the onset of her abdominal pain and the pattern of her bowel habits has not changed. Having a bowel movement sometimes alleviates her pain. She has been on Omeprazole for a couple of months after she had an upper endoscopy with her gastroenterologuits Dr. Interiano in [place]. She states that "inflammation in the stomach was found". The omeprazole does not seem to relive her pain. She also tells me that he has discussed her abdominal pain with him. She denies associated nausea, vomiting, dysphagia, odynophagia, rectal bleeding, melena, diarrhea, fevers/chills, food fear. She was seen in the ER 09/21/17 at which time she had a CT scan of the abdomen with IV contrast only revealing mild air distention of the distal esophagus and mild diverticulosis of the sigmoid colon. She also had an abdominal US that revealed a mildly thickened gallbladder felt to be secondary to a physiologically contracted gallbladder. there were no stones of dilated biliary duscts. She had a repeat US on admission 09/26/17 That revealed a normal appearing gallbladder without stones. HIDA scan 09/26/17 was negative as well. She had an upper endoscopy in [address] Godinez that was unrevealing. She has never had a colonoscopy. There is no family history of colorectal cancer or other GI malignancy. - History Source History Provided By: Patient, Family Member - Past Medical History Cardio/Vascular: Yes: Hyperlipdemia. No: AFIB, Aneurysm, Aortic Stenosis, CAD, CHF, Deep Vein Thrombosis, HTN, LA, Mitral Insufficiency, Mitral Stenosis, Murmur, Pulmonary Hypertension, Other Gastrointestinal: Yes: Constipation ...LMP: 05/25/17 - Past Surgical History Past Surgical History: Yes: Tubal Ligation - Alcohol/Substance Use Hx Alcohol Use: No History of Substance Use: reports: None - Smoking History Smoking history: Never smoked Have you smoked in the past 12 months: No - Social History Usual Living Arrangement: With Spouse ADL: Independent Place of : Other ([place]) Came to [place] (year): age 18 History of Recent Travel: No Home Medications - Allergies Allergies/Adverse Reactions: Allergies Allergy/AdvReac Type Severity Reaction Status Date / Time No Known Allergies Allergy Verified 09/26/17 20:07 - Home Medications Home Medications: Ambulatory Orders Acetaminophen [Tylenol] 650 mg PO Q4H PRN #20 tablet 09/21/17 Famotidine [Pepcid] 40 mg PO DAILY 09/21/17 Oxycodone HCl 5 mg PO Q6H PRN #12 tablet MDD 4 09/21/17 Pantoprazole Sodium 40 mg PO DAILY 09/21/17 Family Disease History - Family Disease History Family Disease History: Other: Father (Alive: healthy), Mother (Alive: healthy) , Brother (3, healthy), Sister (4, healthy), Daughter (5, healthy) Other Family History: No family history of colorectal cancer or other GI malignancy Review of Systems - Review of Systems Constitutional: denies: Chills, Fever, Unintentional Wgt. Loss Cardiovascular: denies: Chest Pain Respiratory: denies: Cough Gastrointestinal: reports: Abdominal Pain, Constipation. denies: Bloating Physical Exam-GI Vital Signs: Vital Signs Temperature 97.7 F 09/28/17 05:00 Pulse Rate 64 09/28/17 05:00 Respiratory Rate 20 09/28/17 06:00 Blood Pressure 98/64 09/28/17 05:00 O2 Sat by Pulse Oximetry (%) 100 09/28/17 06:00 Constitutional: Yes: Calm Eyes: No: Sclera Icterus Cardiovascular: Yes: Regular Rate and Rhythm Respiratory: Yes: CTA Bilaterally Gastrointestinal Inspection: No: Distention, Scars ...Auscultate: Yes: Normoactive Bowel Sounds ...Palpate: Yes: Soft, Tenderness (Mild TTP ruq and mid right abdomen). No: Guarding, Tenderness, Rebound ...Percussion: No: Tympanitic ...Rectal Exam: Yes: Other (No external lesions, no masses, light brown stool in rectal vault, guaiac negative.) Edema: No (No LE edema) Neurological: Yes: Alert, Oriented Psychiatric: Yes: Alert, Oriented Labs: CBC, BMP 09/28/17 07:00 09/26/17 20:19 INR, PTT INR 1.00 (0.82-1.09) 09/26/17 22:55 Hepatic Panel Total Bilirubin 0.3 mg/dL (0.2-1.0) 09/26/17 20:19 AST 21 U/L (15-37) 09/26/17 20:19 ALT 26 U/L (12-78) 09/26/17 20:19 Alkaline Phosphatase 131 U/L (45-117) H 09/26/17 20:19 Albumin 4.0 g/dl (3.4-5.0) 09/26/17 20:19 Imaging - Results Cat Scan: Report Reviewed, Image Reviewed Ultrasound: Report Reviewed (x 2) Problem List - Problems (1) Abdominal pain Assessment/Plan: Unclear etiology at this time: Not a clear clinical picture of biliary colic and pain sometimes improved with a BM Evaluated by Dr. Bueno who is repeat Ct scan with PO and IV contrast I ordered an MRCP as well to evaluate biliary tract given ALP elevation MiraLAX 17g once daily Pending above if unrevealing would likely need colonoscopy. i advised that she speak with her outpatient compression molding machine tender regarding this as well Code(s): R10.9 - UNSPECIFIED ABDOMINAL PAIN Qualifiers: Abdominal location: right upper quadrant Qualified Code(s): R10.11 - Right upper quadrant pain
[2017-09-28 17:00] LABS: ALBUMIN 3.9 g/dl (3.4-5.0); ANION GAP 10 (8-16); BLOOD UREA NITROGEN 12 mg/dL (7-18); CALCIUM 9.1 mg/dL (8.5-10.1); CHLORIDE 99 mmol/L (98-107); CO2 28 mmol/L (21-32); GLUCOSE,RANDOM 90 mg/dL (74-106); POTASSIUM 4.1 mmol/L (3.5-5.1); SODIUM 137 mmol/L (136-145)
[2017-09-28 17:04] LABS: ALK PHOS 131 U/L (45-117); BILIRUBIN,TOTAL 0.4 mg/dL (0.2-1.0); CREATININE 0.7 mg/dL (0.55-1.02); SGOT/AST 27 U/L (15-37); SGPT/ALT 30 U/L (12-78); TOT PROT 7.7 g/dl (6.4-8.2)
--- NOTE | 2017-09-29 07:56 | PN ---
Progress Note, Physician Chief Complaint: Pt was seen HIDA negative Abdomen AND PELVIC cT WITH cotrast negative MRI of abdomen done,report pending GI and sugery f/u appreciated - Current Medication List Current Medications: Active Medications Morphine Sulfate (Morphine Sulfate) 2 mg IVPUSH Q6H PRN PRN Reason: PAIN LEVEL 6-10 Last Admin: 09/27/17 17:30 Dose: 2 mg Oxycodone HCl (Roxicodone -) 5 mg PO Q4H PRN PRN Reason: PAIN LEVEL 1-5 - Objective Vital Signs: Vital Signs Temperature 98.6 F 09/29/17 06:00 Pulse Rate 71 09/29/17 06:00 Respiratory Rate 18 09/29/17 00:00 Blood Pressure 109/66 09/29/17 06:00 O2 Sat by Pulse Oximetry (%) 100 09/29/17 00:00 Constitutional: Yes: No Distress Eyes: Yes: Conjunctiva Clear HENT: Yes: Atraumatic Neck: Yes: Supple Cardiovascular: Yes: Regular Rate and Rhythm Respiratory: Yes: Regular, CTA Bilaterally Gastrointestinal: Yes: Normal Bowel Sounds, Soft Genitourinary: Yes: WNL Musculoskeletal: Yes: WNL Extremities: Yes: WNL Edema: No Peripheral Pulses WNL: Yes Neurological: Yes: WNL, Alert ...Motor Strength: WNL Psychiatric: Yes: WNL Labs: CBC, BMP 09/28/17 07:00 09/28/17 16:15 INR, PTT INR 1.00 (0.82-1.09) 09/26/17 22:55 Assessment/Plan Rt upperqudrant pain HIDA scan negative CT abdomen and pelvis negative MRi of abdomen report pending GERD PLAN f/u with GI and surgery continue omeprazole and pain meds If MRI report negative d/c planing if OK with GI
[2017-09-29 09:31] VITALS: BP 116/70; PULSE 80; TEMP 99
[2017-09-29] MEDS ORDERED: PANTOPRAZOLE 40 MG TABLET (FP) PO SCH (10:00)
--- NOTE | 2017-09-29 11:43 | PN ---
GI Progress Note Subjective: Patient found sitting up playing a game on her phone. Her daughter was laying beside her No acute events Had a BM today, states feeling well otherwise although still describes the same pain pattern, maybe a bit better MRI performed, still not officially read as of yet Repeat contrast CT scan unrevealing - Objective Vital Signs: Vital Signs Temperature 99.0 F 09/29/17 08:35 Pulse Rate 80 09/29/17 08:35 Respiratory Rate 18 09/29/17 08:35 Blood Pressure 116/70 09/29/17 08:35 O2 Sat by Pulse Oximetry (%) 100 09/29/17 00:00 Constitutional: Calm Eyes: No: Sclera Icterus Cardiovascular: Yes: Regular Rate and Rhythm Respiratory: Yes: CTA Bilaterally Gastrointestinal Inspection: No: Distention ...Auscultate: Yes: Normoactive Bowel Sounds ...Palpate: No: Tenderness Edema: No (No LE edema) Neurological: Yes: Alert, Oriented Labs: CBC, BMP 09/28/17 07:00 09/28/17 16:15 INR, PTT INR 1.00 (0.82-1.09) 09/26/17 22:55 Problem List - Problems (1) Abdominal pain Assessment/Plan: Extensive recent ER and inpatient work-up unrevealing Awaiting MRCP result and ordered hepatic panel for today Advised patient that she will need continued follow-up with her forming process worker as an outpatient and to call to make an appointment upon discharge. She stated that she would do so. Code(s): R10.9 - UNSPECIFIED ABDOMINAL PAIN Qualifiers: Abdominal location: right upper quadrant Qualified Code(s): R10.11 - Right upper quadrant pain
[2017-09-29 13:19] LABS: ALK PHOS 140 U/L (45-117); BILIRUBIN,DIRECT < 0.2 mg/dL (0.0-0.2); BILIRUBIN,TOTAL 0.4 mg/dL (0.2-1.0); SGOT/AST 28 U/L (15-37); SGPT/ALT 38 U/L (12-78); TOT PROT 7.9 g/dl (6.4-8.2)
--- NOTE | 2017-10-01 07:29 | DS ---
DATE OF ADMISSION: 09/27/2017 DATE OF DISCHARGE: 09/29/2017 HISTORY OF PRESENT ILLNESS: Patient is a 42-year-old female with a history of reflux disease, bilateral tubal ligation, occasional constipation, who came to the emergency room for the evaluation of the right upper quadrant pain radiating to the shoulder. So, patient was admitted with a diagnosis of biliary colic. Patient was seen at [facility] on September 21, 2017, with the same complaint, and CT of the abdomen and pelvis was done, and ultrasound also was done. It showed mild gallbladder wall thickening of 4 mm without any detectable stone or sludge. Patient denied any fever or nausea or vomiting. So, because of the persistence of symptoms, patient came to the emergency room at [facility]. MEDICATIONS: Patient is taking famotidine and oxycodone and pantoprazole. ALLERGIES: No known drug allergies. ADMISSION PHYSICAL EXAMINATION: Vital signs: In the emergency room, patients temperature was 98.1, pulse 80 per minute, respirations 18, blood pressure 121/73, pulse of 100 General Appearance: Alert, oriented, well-nourished. Head and neck: Normal. Chest: Clear. Cardiovascular: 1st and 2nd sound normal. Abdomen: Mild tenderness in the right upper quadrant. Musculoskeletal: Extremities no edema. Central Nervous System: Cranial nerves 2-12 normal. Alert and oriented x3. No apparent motor or sensory deficit. Reflex normal. EKG showed normal sinus rhythm at the rate of 72. T-wave flattening in aVL, normal axis. Labs done shows CBC normal, CMP normal. Urine was negative. PT INR normal. Total amylase 45, lipase 102. Serum test negative. AST 27, ALT 30, and alkaline phosphatase 131. Ultrasound of the abdomen done in the emergency room, it was normal. HIDA scan done was negative. Patient was seen by the surgeon and gastroenterology. Repeat abdomen and pelvis was done with contrast, oral and IV; it was normal. Because of the persistence of the pain, abdomen MRI was done, but was negative. No evidence of cholecystitis or gallstones. Patient was given Protonix and pain medicine. She was stable on the floor. Patient discharged home in stable condition on Protonix and pain medicine and recommended to see the computer technician as an outpatient. She was discharged home in stable condition. BHAVNA VALENTINO M.D. [id number]
== END 2017-09-29 14:48 | disposition home or self-care (01) | DRG 251 ==
LOC: JER 19:57 → JERBED 22:07 → J6S 09-27 12:19 → OBSVTOIN 09-27 16:04
PROVIDERS: ADMIT Family Medicine; ATTEND Family Medicine
DX: R10.11 Right upper quadrant pain (principal); K21.9 Gastro-esophageal reflux disease without esophagitis; K59.00 Constipation, unspecified; E78.00 Pure hypercholesterolemia, unspecified; F41.9 Anxiety disorder, unspecified; I10 Essential (primary) hypertension; I25.10 Atherosclerotic heart disease of native coronary artery without angina pectoris
CPT/HCPCS: 36415; 74177-TC; 74181-TC; 76705-TC; 78226-TC; 80053; 80076; 81003; 81015; 82150; 83690; 84703; 85025; 85027; 85610; 85730; 86850; 86900; 86901; 93005; 93010; 99283-25; A9537; G0378; J7030

== ENCOUNTER 2018-07-19 13:23 | Emergency (ER) | payer OTHER ==
[2018-07-19 13:31] VITALS: BMI 29.5
--- NOTE | 2018-07-19 13:42 | PDOC ---
History of Present Illness - General Chief Complaint: CVA/TIA Stated Complaint: RT SHOULDER PAIN Time Seen by Provider: 07/19/18 13:41 History Source: Patient Exam Limitations: No Limitations Past History - Past Medical History Allergies/Adverse Reactions: Allergies Allergy/AdvReac Type Severity Reaction Status Date / Time No Known Allergies Allergy Verified 07/19/18 13:38 Home Medications: Ambulatory Orders Omeprazole 20 mg PO DAILY 07/19/18 Anemia: No Asthma: No Cancer: No Cardiac Disorders: No CVA: No COPD: No CHF: No Dementia: No Diabetes: No GI Disorders: Yes (gerd, gallstones) Disorders: No HTN: No Hypercholesterolemia: Yes Liver Disease: No Seizures: No Thyroid Disease: No - Surgical History Abdominal Surgery: No Appendectomy: No Cardiac Surgery: No Cholecystectomy: No Lung Surgery: No Neurologic Surgery: No Orthopedic Surgery: No - Suicide/Smoking/Psychosocial Hx Smoking History: Never smoked Have you smoked in the past 12 months: No Information on smoking cessation initiated: No Hx Alcohol Use: No Drug/Substance Use Hx: No Substance Use Type: None, Cocaine Hx Substance Use Treatment: No *Physical Exam - Vital Signs Last Vital Signs Temp Pulse Resp BP Pulse Ox 98.7 F 80 20 119/76 100 07/19/18 13:27 07/19/18 13:27 07/19/18 13:27 07/19/18 13:27 07/19/18 13:27 Moderate Sedation - Procedure Monitoring Vital Signs: Procedure Monitoring Vital Signs Temperature 98.7 F 07/19/18 13:27 Pulse Rate 80 07/19/18 13:27 Respiratory Rate 20 07/19/18 13:27 Blood Pressure 119/76 07/19/18 13:27 O2 Sat by Pulse Oximetry (%) 100 07/19/18 13:27 *DC/Admit/Observation/Transfer - Referrals Referrals: Jackie Aldrich MD [Primary Care Provider] - - Patient Instructions - Post Discharge Activity
[2018-07-19] MEDS ORDERED: SODIUM CHLORIDE 1,000 ML IV SCH (13:45)
--- NOTE | 2018-07-19 13:49 | PDOC ---
History of Present Illness - General Chief Complaint: CVA/TIA Stated Complaint: RT SHOULDER PAIN Time Seen by Provider: 07/19/18 13:41 - History of Present Illness Initial Comments: 42yo F with PMH of GERD, disc herniation, HLD presenting with an numbness/ tingling on her right side. Patient states that last night around 5pm she experienced numbness and tingling in her distal calf extending inferiorly to her foot. The sensation slowly extended superior to her thigh. This morning she also felt this sensation in her shoulder and forearm. She saw her primary care physician this morning and was instructed to come to the ED. She has not taken anything at home for her symptoms and nothing like this has ever happened before. No recent injury or fall. Denies motor deficits. No family history of stroke. Denies headache, nausea, vomiting, chest pain, or shortness of breath. tPA Exclusion checklist 3-4.5h - Time Elapsed Date last known well: 07/19/18 Time last known well: 17:00 Elaspsed time: Day(s) and 6 Hour(s) and 37 Minutes - Thrombolytic Therapy Candidate Is patient eligible for thrombolytic therapy: No - Exclusion Criteria 3-4.5 hr SBP greater than 185 or DBP greater than 110mmHg despite tx: No Recent IC/spinal surgery,head trauma or stroke<3mos.: No Hx IC hemorrhage, IC neoplasm, AV malformation or aneurysm: No Active internal bleeding: No Blding diathesis(low plt ct, inc PTT,INR>1.7 or use of NOAC): No Symptoms suggest subarachnoid hemorrhage: No CT demonstrates multilobar infarct(>1/3 cerebral hemiphere): No Arterial puncture at noncompressible site in previous 7 days: No Blood glucose concentration less than 50mg/dL (2.7mmol/L): No - Relative Exclusion Criteria 3-4.5 hr Life expectancy <1 yr or severe co-morbid illness: No : No Patient/family refused: No Rapid improvement: No Stroke severity too mild: No Recent acute OR (w/in previous 3 months): No Seizure at onset with postictal residual neuro impairments: No Major surgery or serious trauma w/in previous 14 days: No Recent GI or hemorrhage (w/in previous 21 days): No - Add'l Relative Exclusion 3-4.5 hr Age > 80: No Hx of both diabetes AND prior ischemic stroke: No Taking an oral anticoagulant regardless of INR: No NIHSS >25: No - Ineligibility reason(s) Reasons No tPA given: Outside of window - delayed arrival NIH Stroke Scale - Last Known Well Date/Time & Onset Date Last Known Well: 07/18/18 Time Last Known Well: 17:00 - Initial Evaluation Level of consciousness: Alert Ask patient the month and their age: Answers both correctly Ask patient to open & close eyes; make fist and let go: Obeys both correctly Best gaze (horizontal eye movement): Normal Visual field testing: No visual field loss Facial paresis (Show teeth/raise eyebrows/close eyes tight): Normal symmetrical movement Motor Function: Left Arm: Normal Motor Function: Right Arm: Normal (extends arm 90 (or 45) degrees for 10 seconds without drift Motor Function: Left Leg: Normal (extends leg 30 degrees for 5 seconds without drift) Motor Function: Right Leg: Normal (extends leg 30 degrees for 5 seconds without drift) Limb Ataxia: No ataxia Sensory(Use pinprick test arms,legs,trunk,face/side to side): Mild to moderate decrease in sensation Best language (Describe picture, name items, read sentences): No Aphasia Dysarthria (read several words): Normal articulation Extinction and Inattention: No abnormality - Total Score NIH Stroke Scale Score: 1 Past History - Past Medical History Allergies/Adverse Reactions: Allergies Allergy/AdvReac Type Severity Reaction Status Date / Time No Known Allergies Allergy Verified 07/19/18 13:38 Home Medications: Ambulatory Orders Omeprazole 20 mg PO DAILY 07/19/18 Anemia: No Asthma: No Cancer: No Cardiac Disorders: No CVA: No COPD: No CHF: No Dementia: No Diabetes: No GI Disorders: Yes (gerd, gallstones) Disorders: No HTN: No Hypercholesterolemia: Yes Liver Disease: No Seizures: No Thyroid Disease: No - Surgical History Abdominal Surgery: No Appendectomy: No Cardiac Surgery: No Cholecystectomy: No Lung Surgery: No Neurologic Surgery: No Orthopedic Surgery: No - Suicide/Smoking/Psychosocial Hx Smoking History: Never smoked Have you smoked in the past 12 months: No Information on smoking cessation initiated: No Hx Alcohol Use: No Drug/Substance Use Hx: No Substance Use Type: None, Cocaine Hx Substance Use Treatment: No Review of Systems - Review of Systems Comments:: Constitutional: no fever, no chills HEENT: no throat pain, no dysphagia Cardiovascular: no chest pain, no palpitations Respiratory: no cough, no shortness of breath Gastrointestinal: no abdominal pain, no nausea Genitourinary: no dysuria, no frequency Musculoskeletal: no myalgia, no arthralgia Skin: no rash, no itching Neurologic: no headache, +numbness/tingling on R. side *Physical Exam - Vital Signs Last Vital Signs Temp Pulse Resp BP Pulse Ox 98.7 F 80 20 119/76 100 07/19/18 13:27 07/19/18 13:27 07/19/18 13:27 07/19/18 13:27 07/19/18 13:27 - Physical Exam Comments: General: Awake, alert, and fully oriented, in no acute distress Head: No signs of trauma Eyes: EOMI, sclera anicteric ENT: Moist mucus membranes Neck: Normal ROM, supple Lungs: Lungs clear, Normal breath sounds Cardio: Regular rhythm, S1 and S2 present Abdomen: Soft, nontender. No guarding, no rebound, no masses Extremities: Normal range of motion, Distal pulses present SKIN: Warm, Dry, normal turgor Neurologic: Cranial nerves II through XII intact. Normal reflexes, speech, sharp /dull sensation, strength, coordination, and gait. Moderate Sedation - Procedure Monitoring Vital Signs: Procedure Monitoring Vital Signs Temperature 98.7 F 07/19/18 13:27 Pulse Rate 80 07/19/18 13:27 Respiratory Rate 20 07/19/18 13:27 Blood Pressure 119/76 07/19/18 13:27 O2 Sat by Pulse Oximetry (%) 100 07/19/18 13:27 ED Treatment Course - LABORATORY CBC & Chemistry Diagram: 07/19/18 14:30 07/19/18 14:30 Medical Decision Making - Medical Decision Making 42yo F with PMH of GERD, disc herniation, HLD presenting with an abnormal sensation on her right side. DDX including but not limited to stroke: hemorrhagic vs ischemic, peripheral neuropathy, multiple sclerosis, musculoskeletal pain, Guillain-barre syndrome, somatic dysfunction, psychiatric 07/19/18 15:26 No leukocytosis or anemia Cholesterol and LDL noted to be elevated, however, these labs were not collected fasting Discussed case with Dr. Moe who recommended MRI to rule out MS. 07/19/18 16:00 Due to MRI scheduling variability, plan for admission. Discussed case with Dr. Ramirez who accepted patient for admission. 07/19/18 16:34 Patient was able to go to MRI while in the ED. MRI is negative for acute pathology: "The cerebral sulci and ventricles are normal in size. There are no intracranial hemorrhages, extra-axial fluid collections or evidence of an intra-axial mass lesion. There is no hemosiderin deposition on the gradient echo images. The diffusion weighted images reveal no evidence for an acute ischemic lesion. The FLAIR images reveal no evidence of acute or chronic brain parenchymal lesion. On contrast administration, there are no intra-axial enhancing lesions or evidence of leptomeningeal disease. Orbital and petrous structures, cerebellopontine angles, and posterior fossa appear unremarkable. The paranasal and mastoid sinuses are clear. IMPRESSION: Normal MR scan of the head." Admission cancelled. Numbness/tingling may be due to complex migraine, however patient without headache yesterday or today. Patient to be discharged home and will follow/up with Dr. Moe 07/19/18 18:53 *DC/Admit/Observation/Transfer Diagnosis at time of Disposition: Numbness and tingling - Discharge Dispostion Disposition: HOME Condition at time of disposition: Improved Decision to Admit order: No - Referrals Referrals: Anuradha Ramirez MD [Primary Care Provider] - Colin Moe MD [Staff Physician] - - Patient Instructions Printed Discharge Instructions: DI for Numbness/tingling Additional Instructions: You came to the ED for numbness/tingling. Imaging did not show acute pathology. We have referred you to see a neurologist, Dr. Moe. Call and make an appointment. It is also important to follow up with your primary care doctor in a week to discuss this visit and further assess your symptoms. Immediate medical attention is required if you have worsening, new, or concerning symptoms. If you think you are having an emergency, call for emergency medical services or present to the emergency department right away. - Post Discharge Activity
[2018-07-19 14:36] LABS: BASO % 0.6 % (0-2.0); EOS % 0.5 % (0-4.5); HEMATOCRIT 41.1 % (32.4-45.2); LYMPH % 35.9 % (8-40); MCH 29.4 pg (25.7-33.7); MEAN CELL VOLUME 86.5 fl (80-96); MEAN PLT VOLUME 9.8 fl (7.5-11.1); MONO % 6.1 % (3.8-10.2); NEUT % 56.9 % (42.8-82.8); PLATELET COUNT 237 K/MM3 (134-434); RBC 4.76 M/mm3 (3.60-5.2); RDW 14.4 % (11.6-15.6); WHITE BLOOD COUNT 7.4 K/mm3 (4.0-10.0)
[2018-07-19 14:37] LABS: URINE APPEARANCE CLEAR; URINE BILIRUBIN NEGATIVE (<2.0 mg/dL); URINE COLOR LTYELLOW; URINE GLUCOSE (UA) NEGATIVE (NEGATIVE); URINE KETONE NEGATIVE (NEGATIVE); URINE LEUK ESTERASE NEGATIVE (NEGATIVE); URINE NITRITE NEGATIVE (NEGATIVE); URINE PROTEIN NEGATIVE (NEGATIVE); URINE UROBILINOGEN NEGATIVE mg/dL (0.2-1.0)
[2018-07-19] MEDS ORDERED: ACETAMINOPHEN 1000 MG/100 ML VIAL (NON FORMULARY) IVPB ONE (14:39)
[2018-07-19 14:57] LABS: ALBUMIN 4.1 g/dl (3.4-5.0); ALK PHOS 156 U/L (45-117); ANION GAP 7 MMOL/L (8-16); BILIRUBIN,TOTAL 0.2 mg/dL (0.2-1); BLOOD UREA NITROGEN 17 mg/dL (7-18); CALCIUM 9.3 mg/dL (8.5-10.1); CHLORIDE 104 mmol/L (98-107); CHOLESTEROL 213 mg/dL (50-200); CO2 26 mmol/L (21-32); CREATININE 0.7 mg/dL (0.55-1.3); GLUCOSE,RANDOM 108 mg/dL (74-106); HDL CHOLESTEROL 73 mg/dL (40-60); POTASSIUM 3.9 mmol/L (3.5-5.1); SGOT/AST 23 U/L (15-37); SGPT/ALT 24 U/L (13-61); SODIUM 137 mmol/L (136-145); TOT PROT 8.1 g/dl (6.4-8.2); TRIGLYCERIDES 113 mg/dL (0-150)
[2018-07-19] MEDS ORDERED: ACETAMINOPHEN INJECTION 100 ML IVPB ONE (15:01)
[2018-07-19 15:14] LABS: PROTHROMBIN TIME (PATIENT) 11.8 SEC (9.7-13.0)
--- NOTE | 2018-07-19 15:15 | PDOC ---
Attending Attestation - Medical Decision Making 07/19/18 3:41pm Call placed to Dr. Moe's answering service, neurologist lubrication worker; resident Dr. Ayanna Lee discussed case with provider. 4:00pm Call placed to Dr. Ramirez's answering service, patient's PCP; resident Dr. Ayanna Lee discussed case with provider. <Mendez Sullivan - Last Filed: 07/19/18 16:00> - Resident Resident Name: RosaRomy - ED Attending Attestation I have performed the following: I have examined & evaluated the patient, The case was reviewed & discussed with the resident, I agree w/resident's findings & plan, Exceptions are as noted - HPI HPI: 07/19/18 15:21 The patient is a 42 year old female, with a past medical history of constipation , GERD, and HLD, who presents to the emergency department with numbness in her RUE and RLE. As per patient, at 5pm yesterday (07/18) she began to experience pain (6/10), numbness, and tingling to the right calf radiating to the thigh. She denies any swelling. Denies any recent immobilization. Patient notes going to her PCP today at which time she noticed right shoulder numbness as well. She was then sent to ED for further eval. She denies recent fevers, chills, headache or dizziness. She denies recent nausea, vomit, diarrhea or constipation. She denies recent dysuria, frequency, urgency or hematuria. She denies recent chest pain or shortness of breath. Allergies: NKDA Social history: Nonsmoker. Denies EtOH use and recreational drug use. Primary Care Physician: Dr. Ramirez - Physicial Exam PE: 07/19/18 15:22 GENERAL: Awake, alert, and fully oriented, in no acute distress. HEAD: No signs of trauma EYES: PERRLA, EOMI, sclera anicteric, conjunctiva clear ENT: Auricles normal inspection, hearing grossly normal, nares patent, oropharynx clear without exudates. Moist mucosa NECK: Nontender, no stepoffs, Normal ROM, supple, no lymphadenopathy, JVD, or masses LUNGS: Breath sounds equal, clear to auscultation bilaterally. No wheezes, and no crackles HEART: Regular rate and rhythm, normal S1 and S2, no murmurs, rubs or gallops ABDOMEN: Soft, nontender, normoactive bowel sounds. No guarding, no rebound. No masses EXTREMITIES: Normal range of motion, no edema. No clubbing or cyanosis. No cords, erythema, or tenderness NEUROLOGICAL: Cranial nerves II through XII intact. + slightly diminished sensation to RUE and RLE, 5/5 strength in all extremities, Normal speech, normal gait, normal cerebellar function SKIN: Warm, Dry, normal turgor, no rashes or lesions noted. - Medical Decision Making 07/19/18 15:23 42 F with R sided numbness x 1 day. Low suspicion for CVA as pt is young with few risk factors. Also consider demyelinating disease. Possible atypical migraine. - Labs - CT head - Neuro consult 07/19/18 16:07 CT head negative Discussed with Dr. Moe, who recommends MRI Will obtain MRI with sage to evaluate for demyelinating process 07/19/18 18:50 MRI obtained Prelim read negative Will DC with neuro f/u Pt is well appearing, with normal vitals. Clinically stable for DC at this time. I discussed the physical exam findings, ancillary test results and final diagnoses with the patient. I answered all of the patient's questions. The patient was satisfied with the care received and felt comfortable with the discharge plan and treatment plan. The patient agrees to follow up with the primary care physician within 24-72 hours. <Harry Mcmahan - Last Filed: 07/19/18 18:51> Attestations - Attestations 07/19/18 15:42 Documentation prepared by Mendez Sullivan, acting as medical underwriter for Harry Mcmahan MD. <Mendez Sullivan - Last Filed: 07/19/18 16:00>
[2018-07-19 15:17] LABS: ACTIVATED PTT 35.8 SECONDS (25.2-36.5)
[2018-07-19] MEDS ORDERED: LORazepam 2 MG/ML SDV VIAL ONE (16:45)
[2018-07-19 18:13] VITALS: BP 118/75; PULSE 87; TEMP 98.9
--- NOTE | 2018-07-19 20:08 | CONSULT ---
Consult - text type - Consultation Consultation Note: NEUROLOGY CONSULTATION is greatly appreciated: This 42 yo RH m woman with 5 daughters has had episodic headaches since her 20' s. Generally she has 2-3 GARCÍA's /week but she has had almost daily headaches, waxing and waning, over the last 2 weeks. Headaches can awaken the pt from sleep or be present in the AM upon awakening. R or L hemicranial or holocranial throbbing headaches with nausea, vomiting, photophobia, phonophobia and kinesiophobia. + FH of "migraines" with visual auras in her 20 yo daughter at the bedside who also experiences tingling and discomfort in her legs at night. Last evening, Mrs. Maria developed tingling in her R lower leg which gradually ascended to her hip and later involved the arm. Worse when inactive in bed. Improved with movement. No change in strength, walking or balance. CT of head (C-, reviewed): Normal MRI of brain C-, reviewed): Normal EVERARDO: Neck supple. Cor reg. No bruits. NEURO: MS/speech: Normal CN II-XII: normal Motor: No drift opr tremor. Normal strength, tone and bulk. Normal reflexes. Toes downgoing. Coord: Normal Sensory: Normal. Romberg - Gait: Normal including Tandem IMP: Normal Neurological Exam Migraine Headaches. Paresthesiae suggesting Complicated migraine and/or Migraine-associated Restless limbs syndrome (RLS) Suggest: Neurology f/u for Migraine prophylaxis. Out patient EMG/NCS of right arm and leg and Rx for RLS if symptoms persist. Thank you very much, Colin Moe MD
--- NOTE | 2018-07-19 21:57 | EKG ---
Test Reason : Blood Pressure : / mmHG Vent. Rate : 067 BPM Atrial Rate : 067 BPM P-R Int : 146 ms QRS Dur : 082 ms QT Int : 396 ms P-R-T Axes : -07 000 031 degrees QTc Int : 418 ms NORMAL SINUS RHYTHM NORMAL ECG WHEN COMPARED WITH ECG OF 26-SEP-2017 20:31, NO SIGNIFICANT CHANGE WAS FOUND Confirmed by RUBEN ROSARIO MD ([id number]) on 07/19/2018 9:57:29 PM Referred By: Confirmed By:RUBEN ROSARIO MD
== END 2018-07-19 19:50 | disposition home or self-care (01) ==
LOC: JER 13:23 → SUPCPDRO 13:23 → JER 19:50
PROC: 3E033NZ Introduction of Analgesics, Hypnotics, Sedatives into Peripheral Vein, Percutaneous Approach (ICD-10-PCS; principal; 2018-07-19)
DX: G43.109 Migraine with aura, not intractable, without status migrainosus (principal); R20.0 Anesthesia of skin; E78.00 Pure hypercholesterolemia, unspecified; E78.5 Hyperlipidemia, unspecified; K21.9 Gastro-esophageal reflux disease without esophagitis
CPT/HCPCS: 36415; 70450-TC; 70552-TC; 71046-TC-FY; 80053; 81003; 82465; 83718; 83721; 84478; 84703; 85025; 85610; 85730; 86850; 86900; 86901; 93005; 93010; 96374; 99285-25; J0131; J7030

== ENCOUNTER 2019-01-23 08:00 | Emergency (ER) | payer OTHER ==
--- NOTE | 2019-01-23 08:17 | PDOC ---
History of Present Illness - General Chief Complaint: Pain Stated Complaint: RIGHT SIDE ABDOMINAL PAIN Time Seen by Provider: 01/23/19 08:08 History Source: Patient Exam Limitations: No Limitations - History of Present Illness Travel History: No Initial Comments: 01/23/19 08:34 43y F hx of GERD presents with intermittent RUQ pain for the past 2 days. The pain starts in the RUQ and occasional radiates to the R back and lasts approx 5 min. There is no association with food intake. The pt denies any fever/chills, vomiting but does endorse nausea. pt denies any cp, sob, diaphorsis, diarrhea, melena, bpr, dysuria, hematuria. The nature of this pain is different from her prior GERD symptoms. PMD: Dr. Carpio Past History - Past Medical History Allergies/Adverse Reactions: Allergies Allergy/AdvReac Type Severity Reaction Status Date / Time No Known Allergies Allergy Verified 01/23/19 08:04 Home Medications: Ambulatory Orders Famotidine [Pepcid] 20 mg PO DAILY 01/23/19 Anemia: No Asthma: No Cancer: No Cardiac Disorders: No CVA: No COPD: No CHF: No Dementia: No Diabetes: No GI Disorders: Yes (gerd, gallstones) Disorders: No HTN: No Hypercholesterolemia: Yes Liver Disease: No Seizures: No Thyroid Disease: No - Surgical History Abdominal Surgery: No Appendectomy: No Cardiac Surgery: No Cholecystectomy: No Lung Surgery: No Neurologic Surgery: No Orthopedic Surgery: No - Suicide/Smoking/Psychosocial Hx Smoking History: Never smoked Have you smoked in the past 12 months: No Hx Alcohol Use: No Drug/Substance Use Hx: No Substance Use Type: None, Cocaine Hx Substance Use Treatment: No Review of Systems - Review of Systems Able to Perform ROS?: Yes Comments:: 01/23/19 08:38 Constitutional - no reported Fever, Chills, HEENT: no reported vision changes, sore throat Respiratory: no reported cough, sob, hemoptysis Cardiac: no reported chest pain, palpitations, light headedness, leg swelling Abd/GI: +abd pain, nausea, no reported vomiting, blood per rectum, melena, diarrhea : no reported dysuria, frequency, discharge Musculskelatal - no reported back pain, joint swelling skin - no reported bruising, erythema, rash neurological: no reported headache, numbness, focal weakness, tingling, ataxia, hematologic: no reported easy bruising, easy bleeding 01/23/19 08:42 GENERAL: The patient is awake, alert, and fully oriented, Nontoxic - in no acute distress. HEAD: Normocephalic, atraumatic. EYES: extraocular movements intact, sclera anicteric, conjunctiva clear. ENT: Normal voice, Moist mucous membranes. NECK: Normal range of motion, supple LUNGS: Breath sounds equal, clear to auscultation bilaterally. No wheezes, no rhonchi, no rales. HEART: Regular rate and rhythm, normal S1 and S2 without murmur, rub or gallop. ABDOMEN: Soft, moderate RUQ ttp No guarding, no rebound. No CVA tenderness EXTREMITIES: Normal range of motion, no edema. NEUROLOGICAL: No facial assymetry, Normal speech, PSYCH: Normal mood, normal affect. SKIN: Warm, Dry, normal turgor, ED Treatment Course - LABORATORY CBC & Chemistry Diagram: 01/23/19 09:00 01/23/19 09:00 Medical Decision Making - Medical Decision Making 01/23/19 08:44 ddx - gall stones, kidney stones will obtain ekg to screen for acs, but doubtful based on history will give zofran, toradol for sypmtmoatic relief gb US to eval for gb disease will reassess 01/23/19 09:45 labs results reviewed US reviewed - noted for polyps and nonshadowing stones vs sludging pt reasseed and currently pain free awaiting lipase - anticipate dc with GI fu for outpatient mangemnt I discussed the physical exam findings, ancillary test results and final diagnoses with the patient. I answered all of the patient's questions. The patient was satisfied with the care received and felt comfortable with the discharge plan and treatment plan. The patient will call their primary care physician within 24 hours to arrange follow-up and will return to the Emergency Department with any new, persistent or worsening symptoms. *DC/Admit/Observation/Transfer Diagnosis at time of Disposition: Gall bladder polyp Abdominal pain Qualifiers: Abdominal location: right upper quadrant Qualified Code(s): R10.11 - Right upper quadrant pain - Discharge Dispostion Disposition: HOME Condition at time of disposition: Improved Decision to Admit order: No - Referrals Referrals: Mauricio Carpio MD [Primary Care Provider] - Janes Marti MD [Staff Physician] - - Patient Instructions Printed Discharge Instructions: DI for Abdominal Pain-Adult Additional Instructions: Return to the emergency department immediately with ANY new, persistent or worsening symptoms including worsening abdominal pain, fevers, inability to tolerate oral intake, chest pain, shortness of breath or any other concerns. Your lab work and ultrasound results are included. Stay well hydrated. You MUST call and follow up with your doctor and nitrating acid mixer within 4-5 days for reevaluation. Your emergency department visit is not complete without a followup with your doctor for reevaluation. Please make sure your doctor reviews the results of your emergency evaluation. Print Language: VIETNAMESE - Post Discharge Activity
[2019-01-23 08:18] VITALS: TEMP 98; BMI 30.1
[2019-01-23] MEDS ORDERED: KETOROLAC TROMETHAMINE 30 MG/1 ML VIAL IVPUSH ONE (08:31)
[2019-01-23] MEDS ORDERED: ONDANSETRON 4 MG/2 ML VIAL IVPB ONE (08:31)
[2019-01-23] MEDS ORDERED: SODIUM CHLORIDE 1,000 ML IV ONE (08:42)
[2019-01-23] MEDS ORDERED: ONDANSETRON 4 MG/2 ML VIAL ONE (08:51)
[2019-01-23] MEDS ORDERED: KETOROLAC TROMETHAMINE 30 MG/1 ML VIAL ONE (08:51)
[2019-01-23 09:25] LABS: BASO % 0.5 % (0-2.0); EOS % 0.5 % (0-4.5); HEMATOCRIT 42.5 % (32.4-45.2); HEMOGLOBIN 13.9 GM/dl (10.7-15.3); LYMPH % 36.7 % (8-40); MCH 28.7 pg (25.7-33.7); MCHC 32.8 g/dl (32.0-36.0); MEAN CELL VOLUME 87.5 fl (80-96); MEAN PLT VOLUME 9.6 fl (7.5-11.1); MONO % 6.8 % (3.8-10.2); NEUT % 55.5 % (42.8-82.8); PLATELET COUNT 259 K/MM3 (134-434); RBC 4.86 M/mm3 (3.60-5.2); WHITE BLOOD COUNT 6.4 K/mm3 (4.0-10.8)
[2019-01-23 09:36] LABS: ALBUMIN 4.3 g/dl (3.4-5.0); CALCIUM 9.4 mg/dl (8.5-10); CREATININE 0.6 mg/dl (0.55-1.3); POTASSIUM 4.5 mmol/L (3.5-5.1); TOT PROT 7.8 g/dl (6.4-8.2)
[2019-01-23 10:41] VITALS: BP 120/77; PULSE 71
--- NOTE | 2019-01-24 11:35 | EKG ---
Test Reason : Blood Pressure : / mmHG Vent. Rate : 062 BPM Atrial Rate : 062 BPM P-R Int : 158 ms QRS Dur : 082 ms QT Int : 444 ms P-R-T Axes : -03 031 020 degrees QTc Int : 450 ms NORMAL SINUS RHYTHM ABNORMAL ECG WHEN COMPARED WITH ECG OF 19-JUL-2018 14:29, NO SIGNIFICANT CHANGE WAS FOUND Confirmed by MATHEUS QUIGLEY MD ([id number]) on 01/24/2019 11:34:39 AM Referred By: XIOMARA ESCOBAR Confirmed By:MATHEUS QUIGLEY MD
== END 2019-01-23 10:43 | disposition home or self-care (01) ==
LOC: FER 08:00
PROC: 3E0333Z Introduction of Anti-inflammatory into Peripheral Vein, Percutaneous Approach (ICD-10-PCS; principal; 2019-01-23)
PROC: 3E033GC Introduction of Other Therapeutic Substance into Peripheral Vein, Percutaneous Approach (ICD-10-PCS; 2019-01-23)
PROC: 3E0337Z Introduction of Electrolytic and Water Balance Substance into Peripheral Vein, Percutaneous Approach (ICD-10-PCS; 2019-01-23)
DX: K82.4 Cholesterolosis of gallbladder (principal); R10.11 Right upper quadrant pain; E78.00 Pure hypercholesterolemia, unspecified; K21.9 Gastro-esophageal reflux disease without esophagitis
CPT/HCPCS: 36415; 76705-TC; 80053; 81003; 83690; 84703; 85025; 93005; 96361; 96374; 96375; 99283-25; J7030